=== PATIENT | male | born 1965 | race Asian ===

== ENCOUNTER 2020-01-28 12:11 | Emergency (ER) | payer OTHER ==
[~2020-01-28] VITALS: Ht 167.6 cm; Wt 83.0 kg
[2020-01-28 12:24] VITALS: Ht 167.6 cm; Wt 83.0 kg
[2020-01-28 15:37] VITALS: BP 127/84
== END 2020-01-28 15:37 | disposition home or self-care (01) ==
LOC: ED 12:11
DX: R05 Cough (principal); I10 Essential (primary) hypertension; Z20.828 Contact with and (suspected) exposure to other viral communicable diseases
CPT/HCPCS: Q0092; U0003-CS

== ENCOUNTER 2020-06-12 19:36 | Emergency (ER) | payer OTHER ==
[~2020-06-12] VITALS: Ht 167.6 cm; Wt 82.3 kg
[2020-06-12 19:46] VITALS: Ht 167.6 cm; Wt 82.3 kg
[2020-06-12 20:22] VITALS: BP 141/86
== END 2020-06-12 20:23 | disposition home or self-care (01) ==
LOC: ED 19:36
DX: S50.812A Abrasion of left forearm, initial encounter (principal); I10 Essential (primary) hypertension; W50.4XXA Accidental scratch by another person, initial encounter; Y93.89 Activity, other specified; Y92.89 Other specified places as the place of occurrence of the external cause; Y99.8 Other external cause status